=== PATIENT | male | born 1950 | race Two or more races ===

== ENCOUNTER 2023-07-22 20:23 | Inpatient (IN) | payer BC, OTHER ==
[~2023-07-22] VITALS: Ht 182.9 cm; Wt 98.0 kg
[2023-07-22 21:19] LABS: Basophils # (auto) 0 10 ^3/uL (0-0.2); Eosinophils # (auto) 0.1 10 ^3/uL (0-0.8); Monocytes # (auto) 0.8 10 ^3/uL (0-1.3); Monocytes % (auto) 11.1 % (0.0-12.0); White Blood Cell 7.4 10^3/uL (4.4-10.8)
[2023-07-22 21:20] LABS: Basophils % (auto) 0.3 % (0.0-2.0); Eosinophils % (auto) 0.9 % (0.0-7.0); Hematocrit 54.2 % (41.0-53.0); Hemoglobin 17.8 g/dL (13.5-17.5); Lymphocytes # (auto) 1.6 10 ^3/uL (0.4-5.4); Lymphocytes % (auto) 22.1 % (10.0-50.0); Mean Corpuscular Hemoglobin 29.7 pg (28.0-32.0); Mean Corpuscular Hgb Conc. 32.9 g/dL (32.0-36.0); Mean Corpuscular Volume 90.2 fL (80.0-100.0); Neutrophils # (auto) 4.9 10 ^3/uL (1.6-8.6); Neutrophils % (auto) 65.6 % (37.0-80.0); Nucleated Red Blood Cells % 0.7 %; Red Cell Distribution Width 14.6 % (11.8-14.3)
[2023-07-22 21:28] LABS: Chloride 99 mmol/L (98-107); Sodium 134 mmol/L (136-145)
[2023-07-22 21:29] LABS: Anion Gap 7 (5-15); Carbon Dioxide 28 mmol/L (20-30)
[2023-07-22 21:30] LABS: Calcium 9.9 mg/dL (8.5-10.1)
[2023-07-22 21:35] LABS: BUN/Creatinine Ratio 12.2 (10.0-20.0); Blood Urea Nitrogen 21 mg/dL (9-23); Glucose 207 mg/dL (74-106)
[2023-07-22 22:08] LABS: Urine Bacteria NONE SEEN /hpf (None Seen); Urine Blood 1+ /uL (Negative); Urine Clarity Clear (Clear); Urine Color Yellow (Yellow); Urine Mucus FEW (None Seen); Urine Protein, UAD 1+ (Negative); Urine Specific Gravity 1.026 (1.001-1.035); Urine Urobilinogen Normal (Negative); Urine WBC 1 /hpf (0 - 3); Urine pH 5.5 (5.0-8.0)
[2023-07-23] MEDS ORDERED: ONDANSETRON HCL 4 MG/2 ML VIAL IV PRN (01:00)
[2023-07-23] MEDS ORDERED: DEXTROSE (50%) 50ML SYRG IV PRN ×2 (01:00→15:45)
[2023-07-23 01:45] VITALS: RESP 20; O2SAT 97
[2023-07-23] MEDS: SODIUM CHLORIDE 0.9% 500 ML IV ONE (01:48)
[2023-07-23] MEDS: metroNIDAZOLE 500MG/100ML 100 ML IV SCH (02:00)
[2023-07-23] MEDS: ACCU-CHEK COMFORT CURVE STRIP VI SCH ×2 (05:40→17:37)
[2023-07-23] MEDS: HYDROcodone-ACET 5/325MG TAB PO PRN (05:46)
[2023-07-23] MEDS: InsuLIN REG 1unit/0.01ml Soln (100units/ml) SC SCH ×2 (05:47→17:57)
[2023-07-23] MEDS: LOPERAMIDE HCL 2 MG CAP/TAB PO PRN (08:32)
[2023-07-23 10:00] LABS: Basophils # (auto) 0 10 ^3/uL (0-0.2); Basophils % (auto) 0.3 % (0.0-2.0); Eosinophils # (auto) 0 10 ^3/uL (0-0.8); Eosinophils % (auto) 0.5 % (0.0-7.0); Hematocrit 48.2 % (41.0-53.0); Hemoglobin 15.9 g/dL (13.5-17.5); Lymphocytes # (auto) 1.1 10 ^3/uL (0.4-5.4); Lymphocytes % (auto) 21.5 % (10.0-50.0); Mean Corpuscular Hemoglobin 29.7 pg (28.0-32.0); Mean Corpuscular Hgb Conc. 32.9 g/dL (32.0-36.0); Mean Corpuscular Volume 90.2 fL (80.0-100.0); Monocytes # (auto) 0.9 10 ^3/uL (0-1.3); Monocytes % (auto) 17.7 % (0.0-12.0); Neutrophils # (auto) 3.2 10 ^3/uL (1.6-8.6); Nucleated Red Blood Cells % 0.2 %; Red Blood Cells 5.35 10^6/uL (4.5-5.90); Red Cell Distribution Width 14.5 % (11.8-14.3); White Blood Cell 5.3 10^3/uL (4.4-10.8)
[2023-07-23 10:10] LABS: INR 1.15 (0.9-1.15)
[2023-07-23] MEDS: LISINOPRIL 10 MG TAB PO SCH (10:11)
[2023-07-23 10:20] LABS: Alanine Aminotransferase 19 U/L (7-40); Albumin 4.3 g/dL (3.2-4.8); Alkaline Phosphatase 56 U/L (46-116); Anion Gap 10 (5-15); Aspartate Aminotransferase 27 U/L (13-40); BUN/Creatinine Ratio 14.5 (10.0-20.0); Bilirubin, Total 0.9 mg/dL (0.2-1.0); Blood Urea Nitrogen 25 mg/dL (9-23); Calcium 9.2 mg/dL (8.5-10.1); Carbon Dioxide 19 mmol/L (20-30); Chloride 102 mmol/L (98-107); Cholesterol 102 mg/dL (< 200); Creatine Kinase IFCC 415 U/L (46-171); Glucose 158 mg/dL (74-106); HDL Cholesterol 33 mg/dL (40-59); LDL Cholesterol 53 mg/dL (< 100); Potassium 4.2 mmol/L (3.5-5.1); Sodium 131 mmol/L (136-145); Triglycerides 116 mg/dL (< 150)
[2023-07-23 10:25] LABS: CRP High Sensitivity 13.46 mg/dL (<1.0)
[2023-07-23 10:58] LABS: Folate (Folic Acid) > 24.00 ng/mL (>5.38); Magnesium 1.6 mg/dL (1.6-2.6)
[2023-07-23 11:28] LABS: Erythrocyte Sedimentation Rate 12 mm/hr (0-20)
[2023-07-23 12:32] LABS: Creatinine, Urine 160.7 mg/dL (30.0-125.0)
[2023-07-23] MEDS: SODIUM CHLORIDE 0.9% 1,000 ML IV SCH (12:42)
[2023-07-23] MEDS: MAGNESIUM SULFATE 1GM/100ML 100 ML IV ONE (12:42)
[2023-07-23 15:23] VITALS: RESP 18; O2SAT 95
[2023-07-23] MEDS: TAMSULOSIN HYDROCHLORIDE 0.4 MG CAP PO SCH (18:00)
[2023-07-23 18:35] VITALS: BP 143/66; PULSE 85; RESP 18; TEMP 98.6; O2SAT 96
[2023-07-23 20:00] VITALS: BP_SYST 105; BP_SYST 107; BP_DIAS 57; BP_DIAS 65; PULSE 88; PULSE 91; RESP 18; TEMP 98.7; O2SAT 94
[2023-07-23 22:00] VITALS: BP 107/57; PULSE 91; RESP 18; TEMP 98.7; O2SAT 94
[2023-07-23] MEDS: ATORVASTATIN 20 MG TAB PO SCH (22:04)
[2023-07-24] VITALS (7 sets, daily range): BP systolic 107–154; BP diastolic 57–78; PULSE 72–91; RESP 16–20; TEMP 98.1–98.8; O2SAT 93–96
[2023-07-24 07:37] LABS: Basophils # (auto) 0 10 ^3/uL (0-0.2); Basophils % (auto) 0.3 % (0.0-2.0); Eosinophils # (auto) 0.2 10 ^3/uL (0-0.8); Eosinophils % (auto) 2.7 % (0.0-7.0); Hematocrit 44.9 % (41.0-53.0); Lymphocytes # (auto) 1.5 10 ^3/uL (0.4-5.4); Lymphocytes % (auto) 25.8 % (10.0-50.0); Mean Corpuscular Hemoglobin 30.1 pg (28.0-32.0); Mean Corpuscular Hgb Conc. 33.3 g/dL (32.0-36.0); Mean Corpuscular Volume 90.3 fL (80.0-100.0); Monocytes # (auto) 0.9 10 ^3/uL (0-1.3); Monocytes % (auto) 15.1 % (0.0-12.0); Neutrophils # (auto) 3.2 10 ^3/uL (1.6-8.6); Neutrophils % (auto) 56.1 % (37.0-80.0); Nucleated Red Blood Cells % 0.2 %; Red Blood Cells 4.97 10^6/uL (4.5-5.90); Red Cell Distribution Width 14.4 % (11.8-14.3); White Blood Cell 5.7 10^3/uL (4.4-10.8)
[2023-07-24 07:46] LABS: Alanine Aminotransferase 16 U/L (7-40); Albumin 3.6 g/dL (3.2-4.8); Alkaline Phosphatase 46 U/L (46-116); Anion Gap 7 (5-15); Aspartate Aminotransferase 19 U/L (13-40); BUN/Creatinine Ratio 12.1 (10.0-20.0); Blood Urea Nitrogen 17 mg/dL (9-23); Calcium 8.6 mg/dL (8.7-10.4); Carbon Dioxide 23 mmol/L (20-30); Chloride 107 mmol/L (98-107); Glucose 113 mg/dL (74-106); Magnesium 1.9 mg/dL (1.6-2.6); Potassium 4.2 mmol/L (3.5-5.1); Sodium 137 mmol/L (136-145)
[2023-07-24 07:47] LABS: Bilirubin, Total 0.8 mg/dL (0.2-1.0)
[2023-07-24] MEDS ORDERED: AZITHROMYCIN 500MG/ 250ML 250 ML IV ONE (15:15)
[2023-07-24] MEDS: AZITHROMYCIN 500MG/ 250ML 250 ML IV ONE (16:47)
[2023-07-24] MEDS: SODIUM CHLORIDE 0.9% 1,000 ML IV SCH (18:56)
[2023-07-24] MEDS ORDERED: ASPI-325 PO (20:21)
[2023-07-24] MEDS ORDERED: METF-1145 PO (20:21)
[2023-07-24] MEDS ORDERED: ATOR40TA52 PO (20:21)
[2023-07-24] MEDS ORDERED: CYAN100042 PO (20:21)
[2023-07-24] MEDS ORDERED: INS7030I SC (20:21)
[2023-07-24] MEDS ORDERED: PIOG1TAB37 PO (20:21)
[2023-07-24] MEDS ORDERED: MAGN100C5 PO (20:21)
[2023-07-24] MEDS ORDERED: LISI10TA34 PO (20:21)
[2023-07-24] MEDS: ACETAMINOPHEN 325 MG TAB PO PRN (21:51)
[2023-07-25 05:00] VITALS: BP 150/91; PULSE 71; RESP 18; TEMP 97.6; O2SAT 96
[2023-07-25 05:12] LABS: Chloride 109 mmol/L (98-107); Potassium 4.1 mmol/L (3.5-5.1); Sodium 141 mmol/L (136-145)
[2023-07-25 05:13] LABS: Anion Gap 5 (5-15); Calcium 9.4 mg/dL (8.5-10.1); Carbon Dioxide 27 mmol/L (20-30)
[2023-07-25 05:18] LABS: BUN/Creatinine Ratio 7.1 (10.0-20.0); Blood Urea Nitrogen 9 mg/dL (9-23); Glucose 118 mg/dL (74-106)
[2023-07-25 07:30] VITALS: BP 107/57; PULSE 81; PULSE 91; RESP 17; RESP 18; TEMP 98.7; O2SAT 96
[2023-07-25 09:00] VITALS: BP 128/71; PULSE 81; RESP 20; TEMP 98.2; O2SAT 96
[2023-07-25] MEDS ORDERED: AZITTAB PO (09:41)
[2023-07-25] MEDS ORDERED: AZIT-74 PO (10:07)
[2023-07-25] MEDS: AZITHROMYCIN 500MG/ 250ML 250 ML IV SCH (10:09)
[2023-07-25 16:42] VITALS: BP 102/68; PULSE 82; RESP 17; TEMP 98.1; O2SAT 96
== END 2023-07-25 18:00 | disposition home or self-care (01) | DRG 640 ==
LOC: ER 20:23 → OVERFLOW 07-23 01:05 → WEST WING 07-23 01:05
PROVIDERS: ADMIT Internal Medicine Geriatric Medicine; ATTEND Internal Medicine Geriatric Medicine
DX: E86.0 Dehydration (principal); N17.0 Acute kidney failure with tubular necrosis; K52.9 Noninfective gastroenteritis and colitis, unspecified; E87.1 Hypo-osmolality and hyponatremia; N40.0 Benign prostatic hyperplasia without lower urinary tract symptoms; E78.5 Hyperlipidemia, unspecified; E11.22 Type 2 diabetes mellitus with diabetic chronic kidney disease; I12.9 Hypertensive chronic kidney disease with stage 1 through stage 4 chronic kidney disease, or unspecified chronic kidney disease; N18.9 Chronic kidney disease, unspecified
CPT/HCPCS: 36415; 74176; 76775; 80048; 80053; 80061; 81001; 82550; 82570; 82607; 82746; 82962; 83036; 83605; 83735; 84300; 84443; 84550; 85025; 85048; 85610; 85652; 86141; 87045; 87427; 87493; G0378; J1815; J3490